=== PATIENT | female | born 1965 | race Caucasian/White ===

== ENCOUNTER 2023-04-30 09:39 | Outpatient (CLI) | payer BC, SELFPAY | END 2023-04-30 09:40 | disposition home or self-care (01) | PROVIDERS: PCP Physician Assistant Medical; Visit Provider Physician Assistant Medical | DX: Z00.00 Encounter for general adult medical examination without abnormal findings (principal); R79.89 Other specified abnormal findings of blood chemistry; Z11.59 Encounter for screening for other viral diseases | CPT/HCPCS: 80053; 86703; 86803 ==

== ENCOUNTER 2023-09-17 12:46 | Outpatient (CLI) | payer BC, SELFPAY ==
--- OUTSIDE RECORDS SUMMARY | 2023-09-17 12:53 | XMS_ITS | Continuity of Care Document ---
Author Name Unknown Organization [facility] Address [address] [place] [address] Phone Care Team Providers Care Electronics Teacher Name Role Phone Kevin Thurston Unavailable Unavailable Allergies, Adverse Reactions, Alerts Substance Reaction Status Criticality No Known Allergies Active No Inform ation Medications Medication Instructions Dosage Effective Dates (start - stop) Status Comments tizanidine 4 mg capsule take 1 capsule by oral route 2 times every day 4 MG - Active Valium 5 mg tablet take 1 tablet by oral route 2 times every day prn - Active CALCIUM (unknown strength) Not Available - Active CLOBETASOL PROPIONATE (unknown strength) Not Available - Active FLONASE ALLERGY RELIEF (unknown strength) Not Available - Active METHOCARBAMOL (unknown strength) Not Available - Active ALEVE (unknown strength) Not Available - Active NORTRIPTYLINE HCL (unknown strength) Not Available - Active SUMATRIPTAN (unknown strength) Not Available - Active TRIAMCINOLONE ACETONIDE (unknown strength) Not Available - Active Procedures Procedure Date Office/Outpatient Visit,Est, Mod 2019 Office/Outpatient Visit,New, Mod 2019 Advance Directives Directive Yes / No Effective Date File Name No Information Encounters Encounter Description Practice Location Reason(s) For Visit Diagnoses Date Provider Providers Copied on Encounter [facility], [address], [place], [id number], [place] tel:[phone] [facility] No Information 1 Gold Brown. [facility], [address], [place], [id number] , [place]. tel:[phone] Office/Outpat ient Visit,Est, Mod [facility], [address], [place], [id number], [place] tel:[phone] [facility] Pain in thoracic spine Oct-2 3-202 0 Gold Brown. [facility], [address], [facility] [place], [id number] , [place]. [phone] Referring Provider: Ana Castillo [facility] [address] [place], [address]. tel:[phone] Office/Outpat ient Visit,New, Mod [facility], [address], [place], [id number], [place] tel:[phone] [facility] Pain in thoracic spine Brodie-0 0 Gold Brown. [facility], [address], [place], [place], [id number] , [place]. [phone] Referring Provider: Ana Castillo [facility] [address] [place], [address]. tel:[phone] Family History Family Member Type Diagnosis Age At Onset No Information Payers Payer name Insurance type Covered democrat ID Jayda norris(s) BCBS [id number] Out Of State [id number] Social History Type Description Quantity Date Captured Comments Sex Female Smoking Status No Information Chief Complaint And Reason For Visit No Information Reason For Referral Reason For Referral No Information History Of Present Illness Encounter Date Complaint History Of Prese nt Illness No Information Functional Status Date Functional Assessmen t No Information Instructions Date Instruction Additional Infor mation No Information Assessments Type Assessment Date No Information Patient Care Teams Name Effective Dates (start - stop) Status Members No Information
== END 2023-09-17 12:47 | disposition home or self-care (01) ==
PROVIDERS: PCP Physician Assistant Medical; Visit Provider Physician Assistant Medical
DX: R10.9 Unspecified abdominal pain (principal)
CPT/HCPCS: 80053; 83516; 83690; 86140; 86364

== ENCOUNTER 2024-06-09 13:26 | Outpatient (CLI) | payer BC, SELFPAY | END 2024-06-09 13:27 | disposition home or self-care (01) | PROVIDERS: PCP Physician Assistant Medical; Visit Provider Physician Assistant Medical | DX: I73.00 Raynaud's syndrome without gangrene (principal); Z13.220 Encounter for screening for lipoid disorders; Z13.29 Encounter for screening for other suspected endocrine disorder; Z13.21 Encounter for screening for nutritional disorder | CPT/HCPCS: 80053; 80061; 82306; 84443 ==

== ENCOUNTER 2024-07-15 10:36 | Outpatient (CLI) | payer BC, SELFPAY ==
--- OUTSIDE RECORDS SUMMARY | 2024-07-15 10:39 | XMS_ITS | Encounter Summary ---
Author Organization [facility] Address [address] [place] [address] Care Team Providers Care Arrow Point Attacher Name Role Phone Ana Castillo PA-C Primary Care Provider Reason for Visit * Reason Comments Urgent Care Ear Problem Headache Patient presents wit h a headache, plugged ears, and congestion for 3x weeks. Encounter Details Date Type Department Care Team (Late st Contact Info) Description 07/05/2024 3:05 PM CDT Office Visit [facility] [address] [phone] Leah Holly PA [address] [place] [id number] Acute non-recurrent sinusitis, unspecified location (Primary Dx) Social History Tobacco Use Types Packs/Day Years Used Date Smoking Tobacco: Never Smokeless Tobacco: Never Alcohol Use Standard Drinks/Week Comments Yes 0 (1 standard drink = 0.6 oz pur e alcohol) rare, a couple times a year Adolescent Education Answer Date Record ed Getting School Help Needed Not on file 06/24 Comments No Sex and Gender Information Value Date Recorded Sex Assigned at Not on file Legal Sex Female 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 Gender Identity Not on file Sexual Orientation Not on file 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 Not on file Not on file Not on file documented as of this encounter Last Filed Vital Signs Vital Sign Reading Time Taken Comments Blood Pressure 128/82 07/05/2024 2:46 PM CDT Pulse 113 07/05/2024 2:46 PM CDT Temperature 36.9 ??C (98.5 ??F) 07/05/2024 2:46 PM CD T Respiratory Rate 14 07/05/2024 2:46 PM CDT Oxygen Saturation 95% 07/05/2024 2:46 PM CDT Inhaled Oxygen Concentration - - Weight - - Height - - Body Mass Index - - documented in this encounter Progress Notes * Leah Holly PA - 07/05/2024 3:05 PM CDT SUBJECTIVE: Yaa Peacock is a 59 year old female presenting with a chief complaint of Chief Complaint Patient presents with Urgent Care Ear Problem Headache Patient presents with a headache, plugged ears, and congestion for 3x weeks. She is a new patient of [facility]. Patient presents with 3 weeks of facial pressure upper teeth pain, ear pressure. No fevers. Some vertigo today. Some nausea. Treatment: dayquil, niquil, netti pot Review of Systems Constitutional: Positive for appetite change. Negative for fever. HENT: Positive for congestion, ear pain and sore throat. Negative for rhinorrhea. Respiratory: Negative for cough and shortness of breath. Gastrointestinal: Positive for nausea. All other systems reviewed and are negative. 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 Father [place] - age 60's Psychotic Disorder Father Post traumatic stress disorder Diabetes Father Gastrointestinal Disease Maternal Grandfather ulcers Cancer Maternal Grandfather unkown type Alcohol/Drug Brother half brother/half brother Respiratory Maternal Aunt Heart Disease Maternal Uncle Lipids Maternal Uncle C.A.D. Maternal Uncle [place] Gastrointestinal Disease Paternal Aunt IBS Diabetes Paternal Aunt Breast Cancer Paternal Aunt dad's half sister Heart Disease Paternal Uncle dad's half brother Lipids Paternal Uncle dad's half brother Cancer Other maternal cousin--lung Cancer Other paternal cousin--kidney Hypertension No family hx of Cerebrovascular Disease No family hx of Cancer - colorectal No family hx of Prostate Cancer No family hx of Colon Cancer No family hx of Current Outpatient Medications Medication Sig Dispense Refill dimenhyDRINATE (DRAMAMINE) 50 MG tablet Take 50 mg by mouth nightly as needed for sleep fexofenadine (LEA) 180 MG tablet Take by mouth as needed methocarbamol (ROBAXIN) 500 MG tablet Take 500 mg by mouth 4 times daily as needed for muscle spasms NONFORMULARY 2 rizatriptan (MAXALT) 10 MG tablet Take 1 tablet (10 mg) by mouth at onset of headache for migraine May repeat in 2 hours if needed: max 2/day; average number of headaches monthly 1 12 tablet 11 SUMAtriptan (IMITREX) 100 MG tablet Take 100 mg by mouth at onset of headache for migraine wvvjqsbegy-lcvxpsetpdvub-loxewang (FIORICET, ESGIC) 50-325-40 MG per tablet Take 1 tablet by mouth every 4 hours as needed (Patient not taking: Reported on 07/05/2024) 15 tablet 0 escitalopram (LEXAPRO) 10 MG tablet Take 5 mg by mouth daily (Patient not taking: Reported on 07/05/2024) hydrochlorothiazide (HYDRODIURIL) 12.5 MG tablet Take 12.5 mg by mouth daily (Patient not taking: Reported on 07/05/2024) Social History Tobacco Use Smoking status: Never Smokeless tobacco: Never Substance Use Topics Alcohol use: Yes Comment: rare, a couple times a year OBJECTIVE BP 128/82 (BP Location: Right arm) Pulse 113 Temp 98.5 ??F (36.9 ??C) (Oral) Resp 14 LMP 07/08/2009 SpO2 95% Physical Exam Vitals and nursing note reviewed. Constitutional: Appearance: Normal appearance. She is normal weight. HENT: Head: Normocephalic and atraumatic. Right Ear: Tympanic membrane, ear canal and external ear normal. Left Ear: Tympanic membrane, ear canal and external ear normal. Nose: Nose normal. Mouth/Throat: Mouth: Mucous membranes are moist. Pharynx: Oropharynx is clear. Eyes: Extraocular Movements: Extraocular movements intact. Conjunctiva/sclera: Conjunctivae normal. Cardiovascular: Rate and Rhythm: Normal rate and regular rhythm. Pulses: Normal pulses. Heart sounds: Normal heart sounds. Pulmonary: Effort: Pulmonary effort is normal. Breath sounds: Normal breath sounds. Musculoskeletal: Cervical back: Normal range of motion. Skin: General: Skin is warm and dry. Findings: No rash. Neurological: General: No focal deficit present. Mental Status: She is alert. Psychiatric: Mood and Affect: Mood normal. Behavior: Behavior normal. Labs: No results found for this or any previous visit (from the past 24 hour(s)). ASSESSMENT: No diagnosis found. Medical Decision Making: Differential Diagnosis: URI Adult/Peds: Sinusitis, Viral syndrome, and Viral upper respiratory illness Serious Comorbid Conditions: Adult: reviewed PLAN: Rx for doxycycline. Recommended flonase. Discussed reasons to seek immediate medical attention. Additionally if no improvement or worsening in one week, may follow up with PCP and/or UC. Followup: If not improving or if condition worsens, follow up with your Primary Care Provider, If not improving or if conditions worsens over the next 12-24 hours, go to the Emergency Department There are no Patient Instructions on file for this visit. documented in this encounter Plan of Treatment Not on file documented as of this encounter Visit Diagnoses Diagnosis Acute non-recurrent sinusitis, unspecified location- Primary documented in this encounter Care Teams Arrow Point Attacher Relationship Specialty Start Date End Date Ana Castillo PA-C [facility] [address] [place] [address] PCP - General Physician Pelt Salter 07/05/24 documented as of this encounter
--- OUTSIDE RECORDS SUMMARY | 2024-07-15 10:39 | XMS_ITS | Clinical Summary ---
Author Organization [facility] Address [place], [place] [address] Care Team Providers Care Pool Table Operator Name Role Phone Pcp, No Primary Care Provider Unavailabl e Allergies No known active allergies Medications Medication Sig Dispensed Refills Start Date End Date Status methocarbamoL (ROBAXIN) 500 mg tablet TAKE ONE TABLET BY MOUTH FOUR TIMES A DAY NEEDED FOR MUSCLE SPASMS 01/29/2020 Active clobetasol 0.05% TOPICAL (TEMOVATE) 0.05 % external solution APPLY TO AFFECTED AREA(S) SPARINGLY TWO TIMES A DAY NEEDED 05/10/2020 Active tiZANidine (ZANAFLEX) 4 mg tablet Take 4 mg by mouth. 02/25/2020 Activ e triamcinolone 0.5% (ARISTOCORT) 0.5 % cream APPLY TO AFFECTED AREA(S) TWO TIMES A DAY NEEDED 01/29/2020 Active betamethasone, augmented dipropianate 0.05% (DIPROLENE AF) 0.05 % cream APPLY TO AFFECTED AREA(S) TWO TIMES A DAY FOR 2-3 WEEKS THEN NEEDED 05/05/2020 Active SUMAtriptan (IMITREX) 6 mg/0.5 mL syringe (SUBCUTANEOUS use only) Inject 0.5ml (6mg) subcutaneously at the onset of headache. May repeat in 1 hour. Max 2 injections/24 hours. Max 9 days per month. 12/28/2019 Active SUMAtriptan (IMITREX) 100 mg tablet 1 tab at onset of typical headache. May repeat in 1-2 hours. Max 2/per day. Max 9 days per month. 12/28/2019 Active calcium carbonate-vitamin D3, 600 mg-400 unit, 600 mg(1,500mg) -400 unit tablet Take 1 tablet by mouth. 12/29/2019 Active diazePAM (VALIUM) 5 mg tablet Take 5 mg by mouth 2 times daily if needed. 07/14/2020 Active methylPREDNISolone (MEDROL DOSEPAK) 4 mg tablet FOLLOW PACKAGE DIRECTIONS 07/03/2020 Active HYDROcodone-acetam inophen (5-325 mg/tablet)Indicati ons:Postoperative pain Take 1 Tablet by mouth 3 times daily if needed for Pain. Max acetaminophen dose: 4000 mg in 24 hrs. 10 Tablet 11/13/2023 Active Active Problems No known active problems Encounters Date Type Department Care Team Description 06/17/2024 7:45 AM CDT - 06/17/2024 11:59 PM CDT Hospital Encounter [address] [place] [address] Melquiades Cruz MD Lee, Molly E, PT 06/17/2024 Travel 06/02/2024 7:45 AM CDT - 06/02/2024 11:59 PM CDT Hospital Encounter [address] [place] [address] Melquiades Cruz MD Lee, Molly E, PT 06/02/2024 Travel 05/19/2024 7:41 AM CDT - 05/19/2024 11:59 PM CDT Hospital Encounter [address] [place] [address] Melquiades Cruz MD Lee, Molly E, PT 05/19/2024 Travel 05/03/2024 7:43 AM CDT - 05/03/2024 11:59 PM CDT Hospital Encounter [address] [place] [address] Melquiades Cruz MD Lee, Molly E, PT 05/03/2024 Travel 04/20/2024 7:44 AM CDT - 04/20/2024 11:59 PM CDT Hospital Encounter [address] [place] [address] Melquiades Cruz MD Lee, Molly E, PT 04/20/2024 Travel from Last 3 Months Family History Medical History Relation Name Comments Alcoholism Brother Cancer Brother Diabetes Father Hypertension Father COPD Mother Osteoporosis Mother Cancer-breast Other 1 3rd Cousin Cancer-breast Other 2 Pat Great Aunt Cancer-breast Other 3 1st Pat Cousin Cancer-breast Paternal Aunt Relation Name Status Comments Brother Father Mother Other 1 3rd Cousin Other 2 Pat Great Aunt Other 3 1st Pat Cousin Paternal Aunt Social History Tobacco Use Types Packs/Day Years Used Date Smoking Tobacco: Never Smokeless Tobacco: Never Social Connections Answer Date Recorded Frequency of Communication with Friends and Fami ly Not on file 10/16/2023 Financial Resource Strain Answer Date R ecorded Difficulty of Paying Living Expenses Not on file 09/22/2021 Difficulty of Paying Living Expenses Not on file 09/22/2021 Sex and Gender Information Value Date Recorded Sex Assigned at Not on file Gender Identity Not on file Sexual Orientation Not on file Obstetrics History Last Filed Vital Signs Vital Sign Reading Time Taken Comments Blood Pressure 117/68 06/28/2020 8:49 AM CDT Pulse 82 06/28/2020 8:49 AM CDT Temperature 36.6 ??C (97.9 ??F) 08/11/2020 3:11 PM CS T Respiratory Rate 14 06/28/2020 8:49 AM CDT Oxygen Saturation 99% 06/28/2020 8:49 AM CDT Inhaled Oxygen Concentration - - Weight 65.8 kg (145 lb) 08/11/2020 3:11 PM TIRE CORD WEAVER Height 162.6 cm (5' 4) 08/11/2020 3:11 PM TIRE CORD WEAVER Body Mass Index 24.89 08/11/2020 3:11 PM TIRE CORD WEAVER Plan of Treatment Health Maintenance Due Date Last Done Comments Tdap 1974 Depression screening for age 12+ 1975 HIV for age 15-65 1978 Hepatitis C screening for age 18-79 1981 Tetanus booster 1983 Colonoscopy through age 75 2008 Lipids for age 45-75 2008 Zoster (shingles) series for age 50+ (1 of 2) 2013 Mammogram for age 45-75 02/15/2017 02/16/2016 BMI (ht and wt on same day) for age 18+ 08/11/2021 08/11/2020, 07/28/2020 COVID-19 vaccine series (2023- season) 2024 02/09/2021, 01/19/2021 Influenza for age 50-64 05/23/2024 Pap test for age 21-65 02/24/2026 , 02/24/2023, 02/20/2022, Additional history exists Pneumococcal series for age 6-64 Aged Out No longer eligible based on patient's age to complete this topic Procedures Procedure Name Priority Date/Time Associated Diagnosis Comments HPV HIGH RISK Routine 02/24/2023 9:30 AM CDT XR MAMMO BILAT SCREEN FFDM (IA) Routine 02/16/2016 12:46 PM CDT Encounter for mammogram to establish baseline mammogram from Last 3 Months or Most Recently Relevant to Health Maintenance Results * HPV HIGH RISK (02/24/2023 9:30 AM CDT) TYPE 16 Negative Negative 02/28/2023 1:55 PM CDT [facility] TYPE 18 Negative Negative 02/28/2023 1:55 PM CDT [facility] OTHER HIGH RISK TYPES Negative Negative 02/28/2023 1:55 PM CDT [facility] Other (Cervical) 02/24/2023 9:30 AM CDT 02/26/2023 4:30 PM CDT Narrative [facility] - 02/28/2023 1:55 PM CDT HPV types 16, 18, 31, 33, 35, 39, 45, 51, 52, 56, 58, 59, 66 and 68 DNA were undetectable or below the pre-set threshold. Methodology: Shawn Cam 4800 HPV Test Viridiana Chavarria MD MICROBIOLOGY [facility] [address] [place] [address], * XR MAMMO BILAT SCREEN FFDM (02/16/2016 12:46 PM CDT) Anatomical Region Laterality Modality BREASTS, Breast Left, Breast Right Bilateral Mammography Impressions 02/23/2016 7:53 AM CDT ??There is no radiographic evidence for malignancy. ??Recommend annual mammograms. A lay language report of this examination will be provided to the patient. MAMMOGRAM ASSESSMENT: ??ACR 1 Negative Narrative 02/23/2016 7:53 AM CDT XR MAMMO BILAT SCREEN FFDM [G0202.0] CLINICAL HISTORY: ??This is an asymptomatic 50 y.o. patient. INDICATION FOR EXAM: Mammogram Screening. TECHNIQUE: CC & MLO views were obtained. ??This digital study was evaluated with the assistance of Computer-Aided Detection. COMPARISON FILM: Yes 04/05/13 [facility] 09/12/10 [facility] FINDINGS: ??Mammographically, the breast tissue is heterogeneously dense, which could obscure detection of small masses. There are no dominant masses, suspicious micro calcifications or areas of architectural distortion. Agueda Benedict PA-C MAMMO from Last 3 Months or Most Recently Relevant to Health Maintenance Care Teams Pool Table Operator Relationship Specialty Start Date End Date Pcp, No . PCP - General 06/07/20
--- OUTSIDE RECORDS SUMMARY | 2024-07-15 10:39 | XMS_ITS | Referral Summary ---
Author Organization [facility] Address [address] [place] [address] Care Team Providers Care Glass Fitter Name Role Phone Alexandrea Cason PA-C Primary Care Provider Encounters Date Type Department Care Team Description 07/05/2024 Travel 07/05/2024 3:05 PM CDT Office Visit [facility] [address] [place] [address] Leah Holly PA Acute non-recurrent sinusitis, unspecified location (Primary Dx) from Last 3 Months Allergies Active Allergy Reactions Criticality Noted Date Comments No Known Drug Allergy 03/06/2004 Medications fexofenadine (LEA) 180 MG tablet Take by mouth as needed Active rizatriptan (MAXALT) 10 MG tabletIndicatio ns:Headache(784 .0) Take 1 tablet (10 mg) by mouth at onset of headache for migraine May repeat in 2 hours if needed: max 2/day; average number of headaches monthly 1 12 tablet 11 4 Active NONFORMULARY 2 4 Active butalbital-acet aminophen-caffe ine (FIORICET, ESGIC) 50-325-40 MG per tablet Take 1 tablet by mouth every 4 hours as needed 15 tablet 0 5 Active Additional Information Patient not taking.Reported on 07/05/2024 dimenhyDRINATE (DRAMAMINE) 50 MG tablet Take 50 mg by mouth nightly as needed for sleep Active methocarbamol (ROBAXIN) 500 MG tablet Take 500 mg by mouth 4 times daily as needed for muscle spasms Active escitalopram (LEXAPRO) 10 MG tablet Take 5 mg by mouth daily 3 Active SUMAtriptan (IMITREX) 100 MG tablet Take 100 mg by mouth at onset of headache for migraine 3 Active hydrochlorothia zide (HYDRODIURIL) 12.5 MG tablet Take 12.5 mg by mouth daily 3 Active doxycycline hyclate (VIBRA-TABS) 100 MG tabletIndicatio ns:Acute non-recurrent sinusitis, unspecified location Take 1 tablet (100 mg) by mouth 2 times daily for 7 days. 14 tablet 4 07/12/20 24 Active Problems Problem Noted Date Diagnosed Date Abnormal Pap smear of cervix 03/23/2013 Overview (03/23/2013): Hx of ASCUS but negative HPV Negative colposcopies Negative endometrial biopsy Poor sleep pattern 03/23/2013 CARDIOVASCULAR SCREENING; LDL GOAL LESS THAN 160 07/22/2010 Headache 08/19/2006 Overview (06/22/2015): Neuro eval with Dr Huitron-probable migraine Maxalt prn Problem list name updated by automated process. Provider to review Attention deficit disorder 08/19/2006 Overview (06/22/2015): Problem list name updated by automated process. Provider to review Allergic rhinitis 05/13/2006 Overview (06/22/2015): Problem list name updated by automated process. Provider to review Sinusitis, chronic 05/13/2006 Overview (06/22/2015): Problem list name updated by automated process. 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 Papanicolaou smear of cervix with atypical squamous cells of undetermined significance (ASC-US) 08/27/2006 03/22/2009 Overview (03/22/2009): 06/17/03 Pap - ASCUS recommend Colpo 07/12/03 Colpo - CJ 1 03/08/04 Colpo - Chronic Cervicitis and Repair 03/06/05 Pap - WNL 08/27/06 Pap - Immunizations Name Administration Dates Next Due Influenza (IIV3) PF 08/26/2008 TDAP Vaccine (Adacel) 11/25/2007 Social History Tobacco Use Types Packs/Day Years Used Date Smoking Tobacco: Never Smokeless Tobacco: Never Tobacco Cessation:Counseling Given: Not Answered Alcohol Use Standard Drinks/Week Comments Yes 0 (1 standard drink = 0.6 oz pur e alcohol) rare, a couple times a year Adolescent Education Answer Date Record ed Getting School Help Needed Not on file 06/24 Comments No Sex and Gender Information Value Date Recorded Sex Assigned at Not on file Legal Sex Female 3:05 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 Gender Identity Not on file Sexual Orientation Not on file 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 Not on file Not on file Not on file Last Filed Vital Signs Vital Sign Reading Time Taken Comments Blood Pressure 128/82 07/05/2024 2:46 PM CDT Pulse 113 07/05/2024 2:46 PM CDT Temperature 36.9 ??C (98.5 ??F) 07/05/2024 2:46 PM CD T Respiratory Rate 14 07/05/2024 2:46 PM CDT Oxygen Saturation 95% 07/05/2024 2:46 PM CDT Inhaled Oxygen Concentration - - Weight 63.5 kg (140 lb) 07/01/2023 1:54 PM CDT Height 162.6 cm (5' 4) 07/01/2023 1:54 PM CDT Body Mass Index 24.03 07/01/2023 1:54 PM CDT Plan of Treatment Not on file Procedures Procedure Name Priority Date/Time Associated Diagnosis Comments COLONOSCOPY Routine 07/01/2023 2:16 PM CDT COMPREHENSIVE METABOLIC PANEL STAT 07/07/2016 12:15 PM CDT MA SCREENING DIGITAL BILATERAL 04/05/2013 6:40 PM CDT HIV 1 AND 2 ANTIBODY (QUEST) Routine 03/23/2013 9:29 AM CDT Routine general medical examination at a health care facility Screen for STD (sexually transmitted disease) PAP IMAGED THIN LAYER SCREEN Routine 03/23/2013 12:00 AM CDT Routine general medical examination at a health care facility CL AFF A.M.A. LIPID PANEL Routine 09/06/2008 8:06 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 Routine Gynecological Examination from Last 3 Months or Most Recently Relevant to Health Maintenance Results * COLONOSCOPY (07/01/2023 2:16 PM CDT) [facility] Patient Name: Ethan Branch ?Procedure Date: 07/01/2023 2:16 PM ? Date of : 1965 ? Admit Type: Outpatient Age: 58 ? Gender: Female Attending MD: EWELINA AMEZCUA MD, ??Total Sedation Time: 21_minutes continuous bedside 1:1 Instrument Name: 224 - Adult Colonoscope Procedure: ?Colonoscopy Indications: ?Screening for colorectal malignant neoplasm Providers: ?EWELINA AMEZCUA MD (Doctor) Referring MD: ? ALEXANDREA CASON (Referring MD) Medicines: ?Midazolam 3 mg IV, Fentanyl 150 micrograms IV Complications: ?No immediate complications. Procedure: ?Pre-Anesthesia Assessment: ?- Prior to the procedure, a History and Physical ?was performed, and patient medications and ?allergies were reviewed. The patient is competent. ?The risks and benefits of the procedure and the ?sedation options and risks were discussed with the ?patient. All questions were answered and informed ?consent was obtained. Patient identification and ?proposed procedure were verified by the physician ?in the procedure room. Mental Status Examination: ?alert and oriented. Airway Examination: normal ?oropharyngeal airway and neck mobility. Respiratory ?Examination: clear to auscultation. CV Examination: ?normal. Prophylactic Antibiotics: The patient does ?not require prophylactic antibiotics. Prior ?Anticoagulants: The patient has taken no ?anticoagulant or antiplatelet agents. ASA Grade ?Assessment: II - A patient with mild systemic ?disease. After reviewing the risks and benefits, ?the patient was deemed in satisfactory condition to ?undergo the procedure. The anesthesia plan was to ?use moderate sedation / analgesia (conscious ?sedation). Immediately prior to administration of ?medications, the patient was re-assessed for ?adequacy to receive sedatives. The heart rate, ?respiratory rate, oxygen saturations, blood ?pressure, adequacy of pulmonary ventilation, and ?response to care were monitored throughout the ?procedure. The physical status of the patient was ?re-assessed after the procedure. ?After obtaining informed consent, the colonoscope ?was passed under direct vision. Throughout the ?procedure, the patient's blood pressure, pulse, and ?oxygen saturations were monitored continuously. The ?Olympus Adult Colonoscope, Model # CF-OW526V, ?[place] # 224, SN # [id number] was introduced through ?the anus and advanced to the cecum, identified by ?appendiceal orifice and ileocecal valve. The ?colonoscopy was performed without difficulty. The ?patient tolerated the procedure fairly well. The ?quality of the bowel preparation was good. ?Anatomical landmarks were photographed. ? Findings: ? The perianal and digital rectal examinations were normal. ? The entire examined colon appeared normal on direct and retroflexion ? views. ? Impression: ? - The entire examined colon is normal on direct and ?retroflexion views. ?- No specimens collected. Recommendation: ? - Repeat colonoscopy in 10 years for screening ?purposes. ? Procedure Code(s): ? --- Professional --- ? G0121, Colorectal cancer screening; colonoscopy on individual not ? meeting criteria for high risk Diagnosis Code(s): ? --- Professional --- ? Z12.11, Encounter for screening for malignant neoplasm of colon CPT copyright 2021 [employer]. All rights reserved. The codes documented in this report are preliminary and upon sawing and assembly supervisor review may be revised to meet current compliance requirements. Electronically signed by Ewelina Amezcua MD __ EWELINA AMEZCUA MD 07/01/2023 2:48:27 PM I was physically present for the entire viewing portion of the exam. EWELINA AMEZCUA MD Number of Addenda: 0 Note Initiated On: 07/01/2023 2:16 PM MRN: ?[id number] Procedure Date: ? 07/01/2023 2:16:52 PM Scope Withdrawal Time: 0 hours 6 minutes 11 seconds Total Procedure Duration: 0 hours 18 minutes 43 seconds Estimated Blood Loss: ? Scope In: 2:25:21 PM Scope Out: 2:44:04 PM RADIOLOGY RESULTS 07/01/2023 2:16 PM CDT Alexandrea GRISSOM-Eileen PROCEDURES Final R esult RADIOLOGY RESULTS * Comprehensive metabolic panel (07/07/2016 12:15 PM CDT) Sodium 141 133 - 144 mmol/L [facility] Potassium 4.0 3.4 - 5.3 mmol/L [facility] Chloride 105 94 - 109 mmol/L [facility] Carbon Dioxide 32 20 - 32 mmol/L [facility] Anion Gap 4 3 - 14 mmol/L [facility] Glucose 96 70 - 99 mg/dL [facility] Urea Nitrogen 13 7 - 30 mg/dL [facility] Creatinine 0.95 0.52 - 1.04 mg/dL [facility] GFR Estimate 62 >60 mL/min/1.7 m2 [facility] Comment:Non GFR Calc GFR Estimate If Black 75 >60 mL/min/1.7 m2 [facility] Comment: GFR Calc Calcium 8.5 8.5 - 10.1 mg/dL [facility] Bilirubin Total 0.4 0.2 - 1.3 mg/dL [facility] Albumin 3.5 3.4 - 5.0 g/dL [facility] Protein Total 6.8 6.8 - 8.8 g/dL [facility] Alkaline Phosphatase 57 40 - 150 U/L [facility] ALT 28 0 - 50 U/L [facility] AST 22 0 - 45 U/L [facility] Blood specimen (specimen) 07/07/2016 12:15 PM CDT 07/07/2016 12:42 PM CDT us Macy Preciado MD LAB - BLOOD ORDERABLES Fin al Result [facility] [address] [place] [address], [facility] [phone] * MA Screening Digital Bilateral (04/05/2013 6:40 PM CDT) Anatomical Region Laterality Modality Breast Bilateral Other 04/05/2013 6:40 PM CDT Impressions 04/06/2013 7:52 AM CDT IMPRESSION: BI-RADS Category 1. ?? Negative. An ACR letter will be sent to the patient with regards to these results. ISMAEL WESTON MD Narrative 04/06/2013 7:52 AM CDT NEW BREAST SYMPTOMS: None. TECHNIQUE: Digital mammography with CAD is performed. PRIOR EXAMS: 09/12/2010, 09/08/2009, 09/03/2008, 08/11/2007 PARENCHYMAL PATTERN: Heterogeneously dense. COMMENTS: There has been no significant change. Procedure Note Ismael Weston MD - 04/06/2013 NEW BREAST SYMPTOMS: None. TECHNIQUE: Digital mammography with CAD is performed. PRIOR EXAMS: 09/12/2010, 09/08/2009, 09/03/2008, 08/11/2007 PARENCHYMAL PATTERN: Heterogeneously dense. COMMENTS: There has been no significant change. IMPRESSION IMPRESSION: BI-RADS Category 1. Negative. An ACR letter will be sent to the patient with regards to these results. ISMAEL WESTON MD Stephanie More MD IMG MAMMOGRAPHY ORDERABLES F inal Result * HIV 1 and 2 Antibody (03/23/2013 9:29 AM CDT) HIV 1&2 Antibody Negative [facility] Blood specimen (specimen) 03/23/2013 9:29 AM CDT 03/23/2013 9:30 AM CDT Stephanie More MD LAB - BLOOD ORDERABLES Final Result Performing Organization Address City/State/[facility] Co de Phone Number [facility] [address] * PAP imaged thin layer, screen (03/23/2013 12:00 AM CDT) PAP NIL VALERI Trammell Report Patient Name: ETHAN BRANCH MR#: [id number] Specimen #: [id number] Collected: 03/23/2013 Received: 03/24/2013 Reported: 03/26/2013 14:48 Ordering Phy(s): STEPHANIE MORE SPECIMEN/STAIN PROCESS: Pap imaged thin layer prep screening (Surepath, FocalPoint with guided screening) ? Pap-Cyto x 1, Reflex HPV if ASCUS/NIL (>30 yo) x 1 SOURCE: Cervical, endocervical Pap imaged thin layer prep screening (Surepath, FocalPoint with guided screening) SPECIMEN ADEQUACY: Satisfactory for evaluation. -Transformation zone component present. CYTOLOGIC INTERPRETATION: Negative for Intraepithelial Lesion or Malignancy ? Organism(s): -Fungal organisms morphologically consistent with Vicki spp. Electronically signed out by: KARLEY Alamo (ASCP) Processed and screened at [facility], [facility] CLINICAL HISTORY: Irregular periods Post Menopausal, Previous normal pap Date of Last Pap: 08/01/2009, Papanicolaou Test Limitations: ??Cervical cytology is a screening test with limited sensitivity; regular screening is critical for cancer prevention; Pap tests are primarily effective for the diagnosis/preventi on of squamous cell carcinoma, not adenocarcinomas or other cancers. TESTING LAB LOCATION: [address] [address] COLLECTION SITE: Client: [facility] Location: JANAE TRAMMELL (K) Cytologic material (specimen) 03/23/2013 03/24/2013 8:43 AM CDT Stephanie More MD LAB - OPTIME CLINICAL SPECIM EN Final Result [facility] * A.M.A. LIPID PANEL (09/06/2008 8:06 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) Cholesterol 144 0 - 200 mg/dL [facility] Comment: LDL Cholesterol is the primary guide to therapy: LDL-cholesterol goal in high risk patients is <100 mg/dL and in very high risk patients is <70 mg/dL. The NCEP recommends further evaluation of: patients with cholesterol <200 mg/dL if additional risk factors are present, cholesterol >240 mg/dL, triglycerides >150 mg/dL, or HDL <40 mg/dL. Triglycerides 57 0 - 150 mg/dL [facility] HDL Cholesterol 57 50 - 110 mg/dL [facility] LDL Cholesterol Calculated 76 0 - 129 mg/dL [facility] VLDL-Cholesterol 11 0 - 30 mg/dL [facility] Cholesterol/HDL Ratio 3.0 0.0 - 5.0 [facility] 09/06/2008 8:06 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 09/06/2008 8:11 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 us Franny Bai MD LABORATORY Final Resu lt [facility] [address] [place] [address] from Last 3 Months or Most Recently Relevant to Health Maintenance Insurance BCBS OUT OF [facility] BCBS OUT OF STATE Advance Directives For more information, please contact: [phone] * No Code Status (Latest Code Status on File) Date Activated Date Inactivated Comments 03/05/2004 10:03 AM 03/05/2004 10:03 AM Care Teams Glass Fitter Relationship Specialty Start Date End Date Alexandrea Cason PA-C [facility] [address] [place] [address] PCP - General Physician Band Splitter 07/05/24
--- OUTSIDE RECORDS SUMMARY | 2024-07-15 10:39 | XMS_ITS | Continuity of Care Document ---
Author Organization [facility] Address [address] [place] [address] Phone Care Team Providers Care Post Acute Care Registered Nurse Name Role Phone Kevin Thurston Unavailable Unavailable [...] Diagnoses Date Provider Providers Copied on Encounter [facility], [address], [place], [id number], [place] tel:[phone] [facility] No Information 1 Gold Brown. [facility], [address], [place], [id number] , [place]. tel: [phone] Office/Outpat ient Visit,Est, [facility], [address], [place], [id number], [place] tel:[phone] [facility] Pain in thoracic spine Oct-2 3-202 0 Gold Brown. [facility], [address], [facility] [place], [id number] , [place]. [phone] Referring Provider: Ana Castillo [facility] [address] [place], [address]. tel:[phone] Office/Outpat ient Visit,New, Mod [facility], [address], [place], [id number], [place] tel:[phone] [facility] Pain in thoracic spine Brodie-0 0 Gold Brown. [facility], [address], [facility] [place], [id number] , [place]. [phone] Referring Provider: Ana Castillo [facility] [address] [place], [address]. tel:[phone] Family History Family Member Type Diagnosis Age At Onset No Information Payers Payer name Insurance type Covered libertarian ID Jayda norris(s) BCBS [id number] Out Of State [id number] Social History Type Description Quantity Date Captured [...]
--- OUTSIDE RECORDS SUMMARY | 2024-07-15 10:39 | XMS_ITS | Clinical Summary ---
Author Organization [facility] Address [address] [place] [address] Care Team Providers Care Nut Grader Name Role Phone Found, No Pcp MD Primary Care Provider Unavailab le Source Comments You are receiving this document as you are listed as the primary care provider,follow-up provider, or the patient has been referred to you for consultation.This is in compliance with the Medicare and[facility] EHR Incentive Program,which states Providers who transition their patient to another setting of careor provider of care or refers their patient to another provider of care shouldprovide summary care record for each transition of care or referral. LDL TechnologyChristus [facility] Center[facility] Allergies No known active allergies Medications Medication Sig Dispensed Refills Start Date End Date Status MECLIZINE HCL OR Active naproxen sodium (ANAPROX) 220 MG tablet Take 220 mg by mouth as needed. Active fluticasone propionate (FLONASE) 50 MCG/ACT nasal solution INHALE TWO SPRAYS INTO EACH NOSTRIL EVERY DAY 16 g 11 11/15/2019 Active Additional Information Patient not taking.Reported on 01/03/2021 calcium carbonate-vitamin D 600-400 MG-UNIT tablet Take 1 Tablet by mouth two times a day. 120 Tablet 3 12/28/2019 Active Additional Information Patient not taking.Reported on 01/03/2021 dimenhyDRINATE (DRAMAMINE OR) Active fexofenadine (LEA ALLERGY) 60 MG tablet Take 60 mg by mouth two times daily as needed. Active methocarbamol (ROBAXIN) 500 MG tablet Take 500 mg by mouth as needed. Active tiZANidine (ZANAFLEX) 4 MG tablet Take 4 mg by mouth as needed. Active Clobetasol Propionate 0.05 % liquid Apply topically. Active triamcinolone acetonide (KENALOG) 0.5 % cream Apply topically two times a day. Active SUMAtriptan (IMITREX) 100 MG tabletIndications:M igraine without aura and without status migrainosus, not intractable 1 tab at onset of typical headache. May repeat in 1-2 hours. Max 2/per day. Max 9 days per month. 9 Tablet 11 01/03/2021 Active ondansetron (ZOFRAN-ODT) 8 MG disintegrating tabletIndications:M igraine without aura and without status migrainosus, not intractable 1 tablet as needed for nausea related to migraine,may repeat in 8 hrs. Max 2 tabs a day, max 3 days per week. 20 Tablet 1 01/03/2021 Active SUMAtriptan (IMITREX) 6 MG/0.5ML injectionIndication s:Migraine without aura and without status migrainosus, not intractable Inject 0.5ml (6mg) subcutaneously at the onset of headache. May repeat in 1 hour. Max 2 injections/24 hours. Max 9 days per month. 6 mL 11 01/04/2021 Active nortriptyline (PAMELOR) 10 MG capsule Take 1 Capsule (10 mg) by mouth daily at bedtime. Call [phone] to make appt for more refills 90 Capsule 10/29/2021 Active Active Problems Problem Noted Date Diagnosed Date Vaginal atrophy 12/14/2018 Chronic migraine without aur a without status migrainosus, not intractable 10/16/2017 Raynaud's phenomenon without gangrene 10/16/2017 Insomnia 10/16/2017 Chronic maxillary sinusitis 10/16/2017 Resolved Problems Problem Noted Date Diagnosed Date Resolved Date Migraine 08/07/2017 10/16/2017 Overview (08/07/2017): Seen at the [facility]. Received their records and were sent to scan doc in Jul 2017 Immunizations Name Administration Dates Next Due Influenza IIV4 (Quadrivalent) 0.5mL (81020) 01/2008 Tdap 11/25/2007 Family History Medical History Relation Name Comments Depression Father Diabetes Father Heart Attack Father not sure in com plete [place] Migraines Mother Osteoporosis Mother Migraines Cousin Heart Attack Maternal Grandfather not sanaz e if [place] Heart Attack Maternal Uncle 1 Bill age in 50's Migraines Maternal Uncle 1 Bill Heart Attack Maternal Uncle 2 age in 50's Stroke Other great grandmother Alzheimer's Paternal Grandfather Relation Name Status Comments Father Alive Mother Alive Cousin Maternal Grandfather Maternal Uncle 1 Bill Maternal Uncle 2 Other great grandmother Alive Paternal Grandfather Social History Tobacco Use Types Packs/Day Years Used Date Smoking Tobacco: Never Smokeless Tobacco: Never Alcohol Use Standard Drinks/Week Comments Yes 0 (1 standard drink = 0.6 oz pur e alcohol) occas Sex and Gender Information Value Date Recorded Sex Assigned at Not on file Gender Identity Not on file Sexual Orientation Not on file Last Filed Vital Signs Vital Sign Reading Time Taken Comments Blood Pressure 114/73 01/03/2021 1:36 PM CDT Pulse 71 01/03/2021 1:36 PM CDT Temperature 36.3 ??C (97.4 ??F) 10/13/2017 1:32 PM CS T Respiratory Rate 12 01/03/2021 1:36 PM CDT Oxygen Saturation 99% 10/13/2017 1:32 PM CASING RUNNER Inhaled Oxygen Concentration - - Weight 64.4 kg (142 lb) 12/14/2018 7:56 AM CDT Height 166.4 cm (5' 5.5) 12/14/2018 7:56 AM CDT Body Mass Index 23.27 12/14/2018 7:56 AM CDT Plan of Treatment Health Maintenance Due Date Last Done Comments Colon Cancer Screening Plan Due 1965 Hep C Screening (Preventive Services) 1965 HIV Screening (Preventive Services) 1979 Adult Preventive Visit 12/15/2019 12/14/2018 Mammogram 12/23/2019 12/22/2018, 01/17/2018 (Completed), 02/16/2016 Cervical Cancer Screening 12/15/2023 12/14/2018 Cholesterol 12/16/2023 12/15/2018 COVID-19 Vaccine (2 - 2023-2 5 season) 2024 01/19/2021 Influenza (#1) 2024 07/29/2020, 08/26/2008 DTaP/Tdap/Td (3 - Tdap) 05/31/2030 05/31/20 20, 11/25/2007 RSV (1 - 1-dose 75+ series) 2038 Zoster/Shingles Completed 10/16/2020, 07/29/2020 HepA Aged Out No longer eligi ble based on patient's age to complete this topic HepB Aged Out No longer eligi ble based on patient's age to complete this topic Hib Aged Out No longer eligi ble based on patient's age to complete this topic IPV (Polio) Aged Out No longer eligi ble based on patient's age to complete this topic Infant RSV Aged Out No longer eligi ble based on patient's age to complete this topic MCV4 Aged Out No longer eligi ble based on patient's age to complete this topic Pneumococcal Aged Out No longer eligi ble based on patient's age to complete this topic Procedures Procedure Name Priority Date/Time Associated Diagnosis Comments MM MAMMOGRAM SCREENING BILAT W CAD Routine 12/22/2018 7:57 AM CDT Breast cancer screening LIPID PANEL & DIRECT LDL (IF NEEDED) Routine 12/15/2018 8:04 AM CDT Screening for cholesterol level ANATOMICAL PATH LIQUID BASED Routine 12/14/2018 9:00 AM CDT from Last 3 Months or Most Recently Relevant to Health Maintenance Results * MM Mammogram Screening Bilat W CAD (12/22/2018 7:57 AM CDT) Anatomical Region Laterality Modality Breast Bilateral Mammography Impressions 12/23/2018 8:49 AM CDT : ACR BI-RADS Category 1: Negative RECOMMENDATION: Follow Up Imaging in 12 months - Bilateral The results and recommendations of this examination will be communicated to the patient. Narrative 12/23/2018 8:49 AM CDT MM MAMMOGRAM SCREENING BILAT W CAD performed on 12/22/18 No comparisons were made when reading this study. FINDINGS: Bilateral screening mammogram was performed with the assistance of Computer-Aided Detection. The breasts are heterogeneously dense, which may obscure small masses. There is no radiographic evidence of malignancy. ?? Teri Lora MD RAD KARINA * Lipid Panel - LDLD if Trig Hi [CHOLF] (12/15/2018 8:04 AM CDT) Cholesterol 180 0 - 199 mg/dL PN SOFT Triglycerides 65 4 - 149 mg/dL PN SOFT HDL Cholesterol 73 >39 mg/dL PN SOFT Cholesterol/HDL Ratio Screen 2.5 PN SOFT LDL Calculated 94 19 - 130 mg/dL PN SOFT Non HDL Chol, Calc 107 0 - 159 mg/dL PN SOFT Hours Fasting 10.5 PN SOFT 12/15/2018 8:04 AM CDT 12/15/2018 12:42 PM CDT Narrative PN SOFT - 12/15/2018 5:14 PM CDT Performed at [facility], [address] [place] [address] CLIA number [id number] Teri Lora MD LAB_1 PN SOFT [address] [place] [address] * Pap Smear (12/14/2018 9:00 AM CDT) 12/14/2018 9:00 AM CDT Narrative PN SOFT - 12/30/2018 10:48 AM CDT FINAL GYNECOLOGICAL CYTOLOGY REPORT Pathology #: [id number] ?Date Obtained: 12/14/2018 ? Date Received: 12/15/2018 INTERPRETATION/RESULTS: Negative for Intraepithelial Lesion or Malignancy. SPECIMEN ADEQUACY: Satisfactory for Evaluation. ??No endocervical cells/transformation zone component present; patient is postmenopausal. Verified on 12/25/2018 ??by JUAN ZAIDI(ASCP) (electronic signature) CLINICAL NOTES: ?Abnormal bleeding: No, LMP: post menopausal, Menstrual status: ?Post Menopausal, Current form of therapy: None apply LIQUID BASED PAP SMEAR SPECIMEN TYPE: ?ROUTINE CERVICAL PAP TEST PLEASE NOTE: The pap smear is a screening test designed to aid in the detection of cervical cancer and its precursor lesions. It is not a diagnostic procedure and should not be used as the sole means of detecting cervical cancer. Both false-positive and false-negative reports may occur. Performed at [facility], [address] [place] [id number] Teri Lora MD LAB_1 PN SOFT [address] [place] [id number] from Last 3 Months or Most Recently Relevant to Health Maintenance Care Teams Nut Grader Relationship Specialty Start Date End Date Found, No Pcp, [address] [place] [id number] PCP - General 02/02/20
--- OUTSIDE RECORDS SUMMARY | 2024-07-15 10:39 | XMS_ITS | Clinical Summary ---
Author Organization [facility] Address [address] [place] [address] Care Team Providers Care Mineral Wool Insulation Supervisor Name Role Phone Alexandrea Cason PA-C Primary Care Provider Allergies Active Allergy Reactions Criticality Noted Date [...] recommend Colpo 07/12/03 Colpo - CJ 1 06/17/04 Colpo - Chronic Cervicitis and Repair 03/06/05 Pap - WNL 08/27/06 Pap - Encounters Date Type Department Care Team Description 07/05/2024 3:05 PM CDT Office Visit [facility] [address] [place] [address] [address] [place] [phone] Leah Holly PA Acute non-recurrent sinusitis, unspecified location (Primary Dx) 07/05/2024 Travel from Last 3 Months Immunizations Name Administration Dates Next Due Influenza (IIV3) PF 08/26/2008 TDAP Vaccine (Adacel) 11/25/2007 Family History Medical History Relation Comments Alcohol/Drug Brother 2 half brother/yolie f brother C.A.D. Father PR - age 60's Diabetes Father Psychotic Disorder Father Post traumati c stress disorder Respiratory Maternal Aunt Cancer Maternal Grandfather unkown type Gastrointestinal Disease Maternal Grandfather ul cers C.A.D. Maternal Uncle PR Heart Disease Maternal Uncle Lipids Maternal Uncle Asthma Mother as a child Genitourinary Problems Mother gallbladd er Respiratory Mother copd Cancer Other 1 maternal cousin- -lung Cancer Other 2 paternal cousin- -kidney Breast Cancer Paternal Aunt dad's half siste r Diabetes Paternal Aunt Gastrointestinal Disease Paternal Aunt IBS Heart Disease Paternal Uncle dad's half broth er Lipids Paternal Uncle dad's half broth er Cancer - colorectal No family hx of Cerebrovascular Disease No family hx of Colon Cancer No family hx of Hypertension No family hx of Prostate Cancer No family hx of Relation Status Comments Brother 1 Alive Half brother/Yolie f brother Brother 2 Father Alive Maternal Aunt Maternal Grandfather Maternal Uncle Mother Alive Other 1 Other 2 Paternal Aunt Paternal Uncle Social History Tobacco Use Types Packs/Day Years [...] on file Legal Sex Female 3:05 AM ARCHIVES SPECIALIST Gender Identity Not on file Sexual Orientation Not on file 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 Not on file Not [...] 07/01/2023 1:54 PM CDT Plan of Treatment Health Maintenance Due Date Last Done Comments ADVANCE CARE PLANNING 1965 ANNUAL REVIEW OF HM ORDERS 1963 CT COLONOGRAPHY 1965 FIT 1965 FLEX SIG 1965 sDNA (Cologuard) 1965 HEPATITIS C SCREENING 1981 LIPID 09/06/2013 09/06/2008 GLUCOSE 07/07/2019 07/07/2016, 09/06/2008 YEARLY PREVENTIVE VISIT 12/15/2019 12/15/19 19, 03/23/2013, 08/01/2009, Additional history exists MAMMO SCREENING 12/22/2020 12/22/2018, 01/21, 04/05/2013, Additional history exists PHQ-2 (once per calendar year) 2023 COVID-19 Vaccine ( - season) 2024 02/09/2021, 01/19/2021 INFLUENZA VACCINE (#1) 2024 , 06/23/2022, 06/21/2021, Additional history exists PAP 02/25/2028 02/24/2023, 01/2023, 03/23/2013, Additional history exists DTAP/TDAP/TD IMMUNIZATION (3 - Td or Tdap) 05/31/2030 05/31/2020, 11/25/2007 COLONOSCOPY 07/01/2033 07/01/2023, 06/22, 10/10/2014, Additional history exists COLORECTAL CANCER SCREENING 07/01/2033 RSV VACCINE (1 - 1-dose 75+ series) 2038 HIV SCREENING Completed 03/23/2013 MIGRAINE ACTION PLAN Completed 07/25/2014 ZOSTER IMMUNIZATION Completed 10/16/2020, 0 HPV IMMUNIZATION Aged Out No longer e ligible based on patient's age to complete this topic MENINGITIS IMMUNIZATION Aged Out No l onger eligible based on patient's age to complete this topic Pneumococcal Vaccine: Pediatrics (0 to 5 Years) and At-Risk Patients (6 to 64 Years) Aged Out No longer eligible based on patient's age to complete this topic RSV MONOCLONAL ANTIBODY Aged Out No l onger eligible based on patient's age to complete [...] A.M.A. LIPID PANEL Routine 09/06/2008 8:06 AM ARCHIVES SPECIALIST Routine Gynecological Examination from Last 3 Months or Most Recently Relevant to Health Maintenance Results * COLONOSCOPY (07/01/2023 2:16 PM CDT) COLONOSCOPY Patient Name: Ethan Branch ?Procedure Date: 07/01/2023 [...] and ?oxygen saturations were monitored continuously. The ?[employer] Adult Colonoscope, Model # CF-ND874D, ?Endora # 224, SN # [id number] was introduced through ?the anus and advanced [...] malignant neoplasm of colon CPT copyright 2021 [employer]. All rights reserved. The codes documented in this report are preliminary and upon die technician review may be revised to meet current compliance requirements. Electronically signed by Ewelina Amezcua MD __ EWELINA AMEZCUA MD 07/01/2023 2:48:27 PM I was physically present for the entire viewing portion of the exam. EWELINA AMEZCUA MD Number of Addenda: 0 Note Initiated On: 07/01/2023 2:16 PM MRN: ?[id number] Procedure Date: ? 07/01/2023 2:16:52 PM Scope Withdrawal Time: 0 hours 6 minutes 11 seconds Total Procedure Duration: 0 hours 18 minutes 43 seconds Estimated Blood Loss: ? Scope In: 2:25:21 PM Scope Out: 2:44:04 PM RADIOLOGY RESULTS 07/01/2023 2:16 PM CDT us Alexandrea Cason PA-C PROCEDURES Final R esult RADIOLOGY RESULTS * Comprehensive metabolic panel (07/07/2016 12:15 PM CDT) Sodium 141 133 - 144 mmol/L [facility] Potassium 4.0 3.4 - 5.3 mmol/L [facility] Chloride 105 94 - 109 mmol/L [facility] Carbon Dioxide 32 20 - 32 mmol/L [facility] Anion Gap 4 3 - 14 mmol/L [facility] Glucose 96 70 - 99 mg/dL [facility] Urea Nitrogen 13 7 - 30 mg/dL [facility] Creatinine 0.95 0.52 - 1.04 mg/dL [facility] GFR Estimate 62 >60 mL/min/1.[address] [facility] Comment:Non GFR Calc GFR Estimate If Black 75 >60 mL/min/1.[address] [facility] Comment: GFR Calc Calcium 8.5 8.5 - 10.1 mg/dL [facility] Bilirubin Total 0.4 0.2 - 1.3 mg/dL [facility] Albumin 3.5 3.4 - 5.0 g/dL [facility] Protein Total 6.8 6.8 - 8.8 g/dL [facility] Alkaline Phosphatase 57 40 - 150 U/L [facility] ALT 28 0 - 50 U/L [facility] AST 22 0 - 45 U/L [facility] Blood specimen (specimen) 07/07/2016 12:15 PM CDT 07/07/2016 12:42 PM CDT us Macy Preciado MD LAB - BLOOD ORDERABLES Fin al Result [facility] Jessica Faith [place], [place] [address] [phone] * MA Screening Digital Bilateral (04/05/2013 6:40 [...] regards to these results. ISMAEL WESTON MD us Stephanie More MD IMG MAMMOGRAPHY ORDERABLES F inal Result * HIV 1 and 2 Antibody (03/23/2013 9:29 AM CDT) HIV 1&2 Antibody Negative NEG [facility] Blood specimen (specimen) 03/23/2013 9:29 AM CDT 03/23/2013 9:30 AM CDT us Stephanie More MD LAB - BLOOD ORDERABLES Final Result [address] [address] * PAP imaged thin layer, screen (03/23/2013 12:00 AM CDT) PAP NIL VALERI Trammell Report Patient Name: ETHAN BRANCH MR#: [id number] Specimen #: [id number] Collected: 03/23/2013 Received: 03/24/2013 Reported: 03/26/2013 14:48 [...] KARLEY Alamo (ASCP) Processed and screened at [facility] CLINICAL HISTORY: Irregular periods Post Menopausal, Previous normal pap Date of Last Pap: 08/01/2009, Papanicolaou Test Limitations: ??Cervical cytology is a screening test with limited sensitivity; regular screening is critical for cancer prevention; Pap tests are primarily effective for the diagnosis/preventi on of squamous cell carcinoma, not adenocarcinomas or other cancers. TESTING LAB LOCATION: [facility], [address] [place] [id number] COLLECTION SITE: Client: [facility] Location: JANAE TRAMMELL (K) Cytologic material (specimen) 03/23/2013 03/24/2013 8:43 AM CDT us Stephanie More MD LAB - OPTIME CLINICAL SPECIM EN Final Result Performing Organization Address City/[facility]/ZIP Co de Phone Number COPATH * A.M.A. LIPID PANEL (09/06/2008 8:06 AM ARCHIVES SPECIALIST) Cholesterol 144 0 - 200 mg/dL [facility] Comment: LDL Cholesterol is the primary guide to therapy: LDL-cholesterol goal in high risk patients is <100 mg/dL and in very high risk patients is <70 mg/dL. The NCEP recommends further evaluation of: patients with cholesterol <200 mg/dL if additional risk factors are present, cholesterol >240 mg/dL, triglycerides >150 mg/dL, or HDL <40 mg/dL. Triglycerides 57 0 - 150 mg/dL [facility] HDL Cholesterol 57 50 - 110 mg/dL [facility] LDL Cholesterol Calculated 76 0 - 129 mg/dL [facility] VLDL-Cholesterol 11 0 - 30 mg/dL [facility] Cholesterol/HDL Ratio 3.0 0.0 - 5.0 [facility] 09/06/2008 8:06 AM ARCHIVES SPECIALIST 09/06/2008 8:11 AM ARCHIVES SPECIALIST us Franny Bai MD LABORATORY Final Resu lt Performing Organization Address City/[facility]/ZIP Co de Phone Number [facility] [address] [place] [address] from Last 3 Months or Most Recently Relevant to Health Maintenance Insurance BCBS OUT OF STATE BC OUT OF STATE Advance Directives For more information, please contact: [phone] * No Code Status (Latest Code Status on File) Date Activated Date Inactivated Comments 03/05/2004 10:03 AM 03/05/2004 10:03 AM Care Teams Mineral Wool Insulation Supervisor Relationship Specialty Start Date End Date Alexandrea Cason PA-C [facility] [address] [place] [address] PCP - General Physician Continuous Washer Operator 07/05/24
--- OUTSIDE RECORDS SUMMARY | 2024-07-15 10:39 | XMS_ITS | Encounter Summary ---
Author Organization [facility] Address [address] 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 [address] [place] [address] PCP - General Physician Materials Assistant 07/05/24 documented as of this encounter
== END 2024-07-15 10:37 | disposition home or self-care (01) ==
PROVIDERS: PCP Physician Assistant Medical; Visit Provider Physician Assistant Medical
DX: D69.6 Thrombocytopenia, unspecified (principal)
CPT/HCPCS: 82746

== ENCOUNTER 2024-10-20 11:38 | Outpatient (CLI) | payer BC, SELFPAY ==
--- NOTE | 2024-10-27 08:29 | W.PM.SLEEP ---
Sleep Study Details Details Interpreting Provider: Cam Date of Sleep Study: 10/20/24 Sleep Study Details: STUDY TYPE:? Home unattended ? BMI:? 23.3 ORDERING PROVIDER:? Joanna INDICATION:? Concerns about sleep apnea ? SLEEP SUMMARY:? 426 minutes monitored RESPIRATORY SUMMARY:? AHI 7.9 Low oxygen 82 0.5% of study oxygen less than 90% Snoring 97.2% PERIODIC LIMB MOVEMENTS OF SLEEP: Not record CARDIAC:? Range 57-117, mean 76.1 IMPRESSION:? Mild obstructive sleep apnea RECOMMENDATION: If symptomatic treatment options include CPAP dental appliance and/or airway expansion surgery.
== END 2024-10-20 11:39 | disposition home or self-care (01) ==
LOC: SLEEP 11:39
PROVIDERS: PCP Physician Assistant Medical; Visit Provider Otolaryngology
DX: G47.33 Obstructive sleep apnea (adult) (pediatric) (principal)
CPT/HCPCS: 95806

== ENCOUNTER 2024-12-28 08:00 | Outpatient (CLI) | payer BC, SELFPAY | END 2024-12-28 08:01 | disposition home or self-care (01) | LOC: NFLDREF 01-02 10:16 | PROVIDERS: PCP Physician Assistant Medical; Referring Provider Physician Assistant Medical; Visit Provider Physician Assistant Medical | DX: M54.9 Dorsalgia, unspecified (principal) | CPT/HCPCS: 87086 ==

== ENCOUNTER 2025-06-20 11:33 | Outpatient (CLI) | payer BC, SELFPAY | END 2025-06-20 11:34 | disposition home or self-care (01) | LOC: NFLDREF 06-21 18:31 | PROVIDERS: PCP Physician Assistant Medical; Referring Provider Physician Assistant Medical; Visit Provider Physician Assistant Medical | DX: Z00.00 Encounter for general adult medical examination without abnormal findings (principal); G43.909 Migraine, unspecified, not intractable, without status migrainosus; F41.9 Anxiety disorder, unspecified | CPT/HCPCS: 82306; 84443 ==